=== PATIENT | female | born 1990 | race American Indian/Alaskan Native ===

== ENCOUNTER 2022-01-26 18:50 | Emergency (ER) | payer MEDICAID ==
[2022-01-26 18:55] VITALS: BP 118/70
== END 2022-01-26 23:00 | disposition left against medical advice (07) ==
LOC: ED 18:50
DX: J02.9 Acute pharyngitis, unspecified (principal); R05.9 Cough, unspecified; Z53.21 Procedure and treatment not carried out due to patient leaving prior to being seen by health care provider